=== PATIENT | male | born 1975 | race Caucasian/White ===

== ENCOUNTER 2018-04-13 17:47 | Emergency (ER) | payer SELFPAY ==
[~2018-04-13] VITALS: Ht 162.6 cm; Wt 65.0 kg
[2018-04-13] MEDS ORDERED: ACETAMINOPHEN 325MG TABLET PO ONE (18:15)
[2018-04-13 19:40] LABS: CLARITY URINE CLEAR (CLEAR); COLOR URINE YELLOW (YELLOW); KETONES URINE NEGATIVE (NEGATIVE); LEUKOCYTE ESTERASE URINE NEGATIVE (NEGATIVE); NITRITE URINE NEGATIVE (NEGATIVE); OCCULT BLOOD URINE NEGATIVE (NEGATIVE); PH URINE 6.5 (4.5-8.0); PROTEIN URINE NEGATIVE (NEGATIVE); SPECIFIC GRAVITY URINE 1.008 (1.005-1.030); UROBILINOGEN URINE 0.2 E.U./dL (0.2-1.0)
[2018-04-13] MEDS ORDERED: DIATR MEGLU/DIATRIZOATE SOLN 30ML ONE (21:14)
[2018-04-13 21:17] LABS: HEMATOCRIT. 41.6 % (42.0-52.0); HEMOGLOBIN. 14.3 g/dL (14.0-18.0); MEAN CORPUSCULAR HEMOGLOBIN 31.8 pg (28.0-32.0); MEAN CORPUSCULAR VOLUME 92.7 fL (80.0-94.0); MEAN PLATELET VOLUME 8.3 fl (7.4-10.4); PLATELET 308 x1000/uL (130-400); RED BLOOD CELL COUNT 4.49 mill/uL (4.7-6.1); RED CELL DISTRIBUTION WIDTH 12.5 % (11.6-14.6)
[2018-04-13 21:22] LABS: CHLORIDE 99 mEq/L (98-107)
[2018-04-13 21:28] LABS: PROTHROMBIN TIME 9.9 sec (9.1-11.1)
[2018-04-13 22:00] LABS: PLATELET ESTIMATE NORMAL
[2018-04-14] MEDS ORDERED: BACITRACIN ZINC OINT UDPKT TOP ONE (01:00)
[2018-04-14] MEDS ORDERED: HYDROCODONE/ACETAMINOPHEN 5/325MG TABLET PO ONE (01:00)
[2018-04-14] MEDS ORDERED: LIDOCAINE 1%/EPI 1:100,000 10 ML VIAL IJ ONE (01:00)
[2018-04-14] MEDS ORDERED: METRONIDAZOLE 500 MG PREMIX 100 ML IV ONE (01:30)
[2018-04-14] MEDS ORDERED: CEFTRIAXONE 1 G PREMIX 50 ML IV ONE (01:30)
[2018-04-14] MEDS ORDERED: MORPHINE SULFATE 4 MG/ML CPJ (NOT FOR IM USE) IV STA (01:32)
[2018-04-14] MEDS ORDERED: ONDANSETRON HCL 4MG/2ML VIAL IV STA (01:32)
[2018-04-14] MEDS ORDERED: LIDOCAINE HCL/PF 1% 10 MG/ML 5ML VIAL IJ ONE (01:45)
[2018-04-14] MEDS ORDERED: MORPHINE SULFATE 4 MG/ML CPJ (NOT FOR IM USE) IV ONE (02:04)
[2018-04-14] MEDS ORDERED: LORAZEPAM 2MG/ML CPJ IV ONE (02:45)
[2018-04-14 03:23] VITALS: BP 142/89
[2018-04-14] MEDS ORDERED: IOHEXOL-300 100 ML BOTTLE ONE (06:29)
== END 2018-04-14 03:23 | disposition home or self-care (01) ==
LOC: ER 17:47
DX: K61.0 Anal abscess (principal)
CPT/HCPCS: 36415; 46050; 74177; 80048; 81003; 85025; 85610; 96365; 96366; 96375; 99285; J0696; J2060; J2270; J2405; J3490; Q9967; Z7610; Q9963